=== PATIENT | male | born 1960 | race Hispanic/Latino ===

== ENCOUNTER 2017-04-29 18:10 | Inpatient (IN) | payer SELFPAY ==
[~2017-04-29] VITALS: Ht 170.2 cm; Wt 88.4 kg
[2017-04-29 18:38] LABS: BASOPHILS % (AUTO) 0.3 % (0.0-5.0); EOSINOPHILS % (AUTO) 0.9 % (0.0-8.0); HEMATOCRIT 46.8 % (42-54); LYMPHOCYTES % (AUTO) 13.1 % (21.0-51.0); MEAN CORPUSCULAR HEMOGLOBIN 31.4 pg (27.0-33.0); MEAN CORPUSCULAR VOLUME 89.6 fL (79-99); MONOCYTES % (AUTO) 10.1 % (3.0-13.0); NEUTROPHILS % (AUTO) 75.6 % (40.0-77.0); NUCLEATED RED BLOOD CELLS 0.1 % (0.0-0.19); PLATELET COUNT (AUTO) 148 K/uL (130-400); RED BLOOD CELL COUNT(AUTO) 5.23 MIL/uL (4.50-6.20); RED CELL DISTRIBUTION WIDTH 13.8 % (11.0-15.5); WHITE BLOOD COUNT (AUTO) 11.7 K/uL (4.8-10.8)
[2017-04-29 18:52] LABS: CREATININE 2.2 mg/dL (0.5-1.5); INR 0.9 (0.85-1.15); PARTIAL THROMBOPLASTIN TIME 26.7 SEC (26.3-35.5); POTASSIUM 3.4 mmol/L (3.5-5.1); PROTHROMBIN TIME 9.5 SEC (9.6-11.6)
[2017-04-29 18:57] LABS: ALBUMIN 3.6 g/dL (3.5-5.0); BILIRUBIN,TOTAL 0.7 mg/dL (0.2-1.0); TOTAL PROTEIN, SERUM 7.8 g/dL (6.0-8.3)
[2017-04-29] MEDS ORDERED: LABETALOL HCL 5 MG/ML 20ML VIAL IV ONE ×2 (19:06→21:35)
[2017-04-29] MEDS ORDERED: SODIUM CHLORIDE 0.9% 500ML 500 ML IV ONE (20:02)
[2017-04-29 22:29] LABS: APPEARANCE,URINE Clear (CLEAR); BILIRUBIN,URINE Negative (NEGATIVE); COLOR,URINE Yellow (YELLOW); GLUCOSE, URINE (UA) Negative (NEGATIVE); KETONES,URINE Negative (NEGATIVE); LEUKOCYTE ESTERASE ,URINE Negative (NEGATIVE); NITRATE,URINE Negative (NEGATIVE); OCCULT BLOOD,URINE Trace (NEGATIVE); PH,URINE 6.5 (5.0-8.0); PROTEIN,URINE POS 2+ (NEGATIVE); UROBILINOGEN,URINE 0.2 mg/dL (0.2-1.0)
[2017-04-29 22:46] LABS: AMPHET/METH SCREEN,URINE NEGATIVE (NEGATIVE); BARBITURATE SCREEN, URINE NEGATIVE (NEGATIVE); BENZODIAZEPINES SCREEN,URINE NEGATIVE (NEGATIVE); CANNABINOID SCREEN,URINE POSITIVE (NEGATIVE); COCAINE SCREEN,URINE POSITIVE (NEGATIVE); OPIATE SCREEN,URINE NEGATIVE (NEGATIVE); PHENCYCLIDINE SCREEN,URINE NEGATIVE (NEGATIVE)
[2017-04-29 22:58] LABS: BACTERIA,URINE None Seen /HPF (None Seen); RBC,URINE None Seen /HPF (0-1); SQUAMOUS EPITHELIAL CELL,UR Rare /LPF (0-2); WBC,URINE None Seen /HPF (0-1)
[2017-04-30] MEDS ORDERED: METOPROLOL TARTRATE 25 MG TAB ONE (01:14)
[2017-04-30] MEDS ORDERED: ASPIRIN 325 MG TABLET ONE (01:14)
[2017-04-30] MEDS ORDERED: ACETAMINOPHEN 325 MG TAB PO PRN (05:15)
[2017-04-30] MEDS ORDERED: ONDANSETRON HCL 4 MG/2 ML VIAL IV PRN (05:15)
[2017-04-30 06:35] LABS: CREATINE KINASE MB 0.8 ng/mL (0.5-3.6); CREATININE 2.1 mg/dL (0.5-1.5); POTASSIUM 3.4 mmol/L (3.5-5.1); TROPONIN I 0.14 ng/mL (0.00-0.06)
[2017-04-30 07:05] LABS: HEMATOCRIT 44.5 % (42-54); MEAN CORPUSCULAR HGB CONC 34.3 g/dL (32.0-36.0); MEAN CORPUSCULAR VOLUME 90.6 fL (79-99); PLATELET COUNT (AUTO) 128 K/uL (130-400); RED BLOOD CELL COUNT(AUTO) 4.91 MIL/uL (4.50-6.20); RED CELL DISTRIBUTION WIDTH 14.2 % (11.0-15.5); WHITE BLOOD COUNT (AUTO) 9.1 K/uL (4.8-10.8)
[2017-04-30 07:43] LABS: LYMPHOCYTES % (MANUAL) 12 % (22-44); MONOCYTES % (MANUAL) 13 % (2-9); REACTIVE LYMPHOCYTES 3 % (0-0); SEGMENTED NEUTROPHILS % 72 % (40-70)
[2017-04-30 07:44] LABS: MAN.DIFF COMMENT-IMPRESSION MANUAL DIFFERENTIAL; PLATELET MORPHOLOGY COMMENT SLIGHTLY DECREASED
[2017-04-30] MEDS ORDERED: HYDRALAZINE HCL 20 MG/ML VIAL ONE (08:04)
[2017-04-30] MEDS ORDERED: METOPROLOL TARTRATE 25 MG TAB PO SCH (09:00)
[2017-04-30] MEDS: ASPIRIN 325MG EC TAB 325 MG TABLET.DR PO SCH (09:00)
[2017-04-30 11:30] VITALS: BP 147/76
[2017-04-30] MEDS ORDERED: SODIUM CHLORIDE 0.9% 1000ML 1,000 ML IV ONE (11:45)
[2017-04-30] MEDS: SODIUM CHLORIDE 0.9% 1000ML 1,000 ML IV SCH ×2 (13:42→20:59)
[2017-04-30] MEDS: FAMOTIDINE 20MG TAB 20 MG TAB PO SCH ×2 (14:10→20:58)
[2017-04-30] MEDS: AMLODIPINE BESYLATE 5 MG TAB PO SCH (14:11)
[2017-04-30] MEDS: BENAZEPRIL HCL 10 MG TABLET PO SCH (14:11)
[2017-04-30] MEDS: LORAZEPAM 2 MG/ML 1 ML VIAL IVP PRN ×2 (14:57→21:47)
[2017-04-30 16:00] VITALS: BP 137/99
[2017-04-30 20:00] VITALS: BP 139/78
[2017-04-30] MEDS: ATORVASTATIN CALCIUM 20 MG TABLET PO SCH (20:58)
[2017-04-30] MEDS ORDERED: LORAZEPAM 2 MG/ML 1 ML VIAL IM PRN (21:45)
[2017-04-30] MEDS ORDERED: CHLORDIAZEPOXIDE HCL 25 MG CAP ONE (21:45)
[2017-04-30] MEDS: CHLORDIAZEPOXIDE HCL 25 MG CAP PO SCH (23:32)
[2017-05-01] VITALS (9 sets, daily range): BP systolic 154–192; BP diastolic 84–107
[2017-05-01] MEDS: CLONIDINE HCL 0.1 MG TABLET PO PRN ×2 (01:05→20:12)
[2017-05-01] MEDS: SODIUM CHLORIDE 0.9% 1000ML 1,000 ML IV SCH ×2 (01:09→10:48)
[2017-05-01] MEDS: LORAZEPAM 2 MG/ML 1 ML VIAL IVP PRN ×2 (02:15→23:51)
[2017-05-01 06:13] LABS: CREATININE 1.8 mg/dL (0.5-1.5)
[2017-05-01 06:15] LABS: POTASSIUM 2.8 mmol/L (3.5-5.1)
[2017-05-01] MEDS ORDERED: POTASSIUM CHLORIDE 20MEQ/100ML 100 ML IV ONE (07:00)
[2017-05-01] MEDS ORDERED: LIDOCAINE HCL-MPF 1% 2ML VIAL IVP PRN (07:45)
[2017-05-01] MEDS ORDERED: POTASSIUM CHLORIDE 20MEQ/100ML 100 ML IV PRN (07:45)
[2017-05-01] MEDS ORDERED: POTASSIUM CHLORIDE 10% ELIXIR 20 MEQ/15 ML UDCUP PO PRN (07:45)
[2017-05-01] MEDS: AMLODIPINE BESYLATE 5 MG TAB PO SCH (09:26)
[2017-05-01] MEDS: CHLORDIAZEPOXIDE HCL 25 MG CAP PO SCH ×3 (09:26→20:12)
[2017-05-01] MEDS: ASPIRIN 325MG EC TAB 325 MG TABLET.DR PO SCH (09:26)
[2017-05-01] MEDS: BENAZEPRIL HCL 10 MG TABLET PO SCH (09:26)
[2017-05-01] MEDS: FAMOTIDINE 20MG TAB 20 MG TAB PO SCH ×2 (09:26→20:12)
[2017-05-01] MEDS: ISOSORBIDE MONO 30MG TAB SR PO SCH (09:26)
[2017-05-01] MEDS: THIAMINE HCL 100 MG TABLET PO SCH (12:11)
[2017-05-01] MEDS: FOLIC ACID 1 MG TABLET PO SCH (12:11)
[2017-05-01] MEDS: ATORVASTATIN CALCIUM 20 MG TABLET PO SCH (20:12)
[2017-05-01] MEDS: POTASSIUM CHLORIDE 20 MEQ ERTAB PO PRN ×2 (21:02→23:19)
[2017-05-01] MEDS: HYDRALAZINE HCL 20 MG/ML VIAL IV PRN ×2 (23:23)
[2017-05-02] VITALS (7 sets, daily range): BP systolic 116–189; BP diastolic 64–118
[2017-05-02] MEDS: HYDRALAZINE HCL 20 MG/ML VIAL IV PRN (03:54)
[2017-05-02 05:50] LABS: BASOPHILS % (AUTO) 0.3 % (0.0-5.0); EOSINOPHILS % (AUTO) 0.3 % (0.0-8.0); HEMATOCRIT 45.4 % (42-54); MEAN CORPUSCULAR HEMOGLOBIN 31.3 pg (27.0-33.0); MEAN CORPUSCULAR HGB CONC 34.6 g/dL (32.0-36.0); MEAN CORPUSCULAR VOLUME 90.5 fL (79-99); MONOCYTES % (AUTO) 8.4 % (3.0-13.0); NUCLEATED RED BLOOD CELLS 0.2 % (0.0-0.19); PLATELET COUNT (AUTO) 165 K/uL (130-400); RED BLOOD CELL COUNT(AUTO) 5.02 MIL/uL (4.50-6.20); RED CELL DISTRIBUTION WIDTH 14.5 % (11.0-15.5); WHITE BLOOD COUNT (AUTO) 11.5 K/uL (4.8-10.8)
[2017-05-02 06:05] LABS: ALBUMIN 3.2 g/dL (3.5-5.0); BILIRUBIN,TOTAL 0.8 mg/dL (0.2-1.0); CREATININE 1.8 mg/dL (0.5-1.5); POTASSIUM 3.4 mmol/L (3.5-5.1); TOTAL PROTEIN, SERUM 7.2 g/dL (6.0-8.3)
[2017-05-02] MEDS ORDERED: REGADENOSON 0.4 MG/5 ML PF SYG IVP SCH (06:45)
[2017-05-02] MEDS: ASPIRIN 325MG EC TAB 325 MG TABLET.DR PO SCH (09:54)
[2017-05-02] MEDS: FOLIC ACID 1 MG TABLET PO SCH (09:55)
[2017-05-02] MEDS: CLONIDINE HCL 0.2 MG TABLET PO SCH ×2 (09:55→19:55)
[2017-05-02] MEDS: CHLORDIAZEPOXIDE HCL 25 MG CAP PO SCH ×3 (09:56→19:55)
[2017-05-02] MEDS: ISOSORBIDE MONO 30MG TAB SR PO SCH (09:56)
[2017-05-02] MEDS: POTASSIUM CHLORIDE 20 MEQ ERTAB PO PRN ×2 (09:57→12:30)
[2017-05-02] MEDS: FAMOTIDINE 20MG TAB 20 MG TAB PO SCH ×2 (09:57→19:55)
[2017-05-02] MEDS: AMLODIPINE BESYLATE 5 MG TAB PO SCH (09:57)
[2017-05-02] MEDS: THIAMINE HCL 100 MG TABLET PO SCH (09:57)
[2017-05-02] MEDS: BENAZEPRIL HCL 10 MG TABLET PO SCH ×2 (09:57→19:55)
[2017-05-02] MEDS: ATORVASTATIN CALCIUM 20 MG TABLET PO SCH (19:54)
[2017-05-03] VITALS (7 sets, daily range): BP systolic 96–161; BP diastolic 4–82
[2017-05-03] MEDS: LORAZEPAM 2 MG/ML 1 ML VIAL IVP PRN (01:50)
[2017-05-03] MEDS: CHLORDIAZEPOXIDE HCL 25 MG CAP PO SCH ×3 (07:26→20:50)
[2017-05-03] MEDS: FOLIC ACID 1 MG TABLET PO SCH (07:26)
[2017-05-03] MEDS: BENAZEPRIL HCL 10 MG TABLET PO SCH ×2 (07:26→20:51)
[2017-05-03] MEDS: THIAMINE HCL 100 MG TABLET PO SCH (07:26)
[2017-05-03] MEDS: AMLODIPINE BESYLATE 5 MG TAB PO SCH (07:27)
[2017-05-03] MEDS: ASPIRIN 325MG EC TAB 325 MG TABLET.DR PO SCH (07:27)
[2017-05-03] MEDS: FAMOTIDINE 20MG TAB 20 MG TAB PO SCH ×2 (07:27→20:51)
[2017-05-03] MEDS: CLONIDINE HCL 0.2 MG TABLET PO SCH ×2 (07:27→20:51)
[2017-05-03] MEDS: ISOSORBIDE MONO 30MG TAB SR PO SCH (07:27)
[2017-05-03] MEDS: M.V.I. IV [ADULT] 10 ML, FOLIC ACID 1 MG, THIAMINE HCL 100 MG in SODIUM CHLORIDE 0.9% 1... IV SCH (10:00)
[2017-05-03] MEDS ORDERED: [UNRECOGNIZED DRUG - CODE] PO (10:57)
[2017-05-03] MEDS ORDERED: ASPI-891 PO (10:57)
[2017-05-03] MEDS ORDERED: LIB25 PO (10:57)
[2017-05-03] MEDS ORDERED: ATOR20TA65 PO (10:57)
[2017-05-03] MEDS ORDERED: FAMO20TA8 PO (10:57)
[2017-05-03] MEDS ORDERED: Isosorbide Mono 30MG Tab Sr PO (10:57)
[2017-05-03] MEDS ORDERED: AMLO5TAB4 PO (10:57)
[2017-05-03] MEDS ORDERED: Benazepril Hcl PO (10:57)
[2017-05-03] MEDS ORDERED: FOLI1TAB15 PO (10:57)
[2017-05-03] MEDS ORDERED: THIAM100TB PO (10:57)
[2017-05-03] MEDS: ATORVASTATIN CALCIUM 20 MG TABLET PO SCH (20:49)
[2017-05-04 04:00] VITALS: BP 158/95
[2017-05-04 07:30] VITALS: BP 136/86
[2017-05-04] MEDS: M.V.I. IV [ADULT] 10 ML, FOLIC ACID 1 MG, THIAMINE HCL 100 MG in SODIUM CHLORIDE 0.9% 1... IV SCH (09:00)
[2017-05-04] MEDS: FOLIC ACID 1 MG TABLET PO SCH (10:03)
[2017-05-04] MEDS: CHLORDIAZEPOXIDE HCL 25 MG CAP PO SCH ×3 (10:05→21:28)
[2017-05-04] MEDS: ASPIRIN 325MG EC TAB 325 MG TABLET.DR PO SCH (10:05)
[2017-05-04] MEDS: BENAZEPRIL HCL 10 MG TABLET PO SCH ×2 (10:05→21:31)
[2017-05-04] MEDS: CLONIDINE HCL 0.2 MG TABLET PO SCH ×2 (10:05→21:29)
[2017-05-04] MEDS: ISOSORBIDE MONO 30MG TAB SR PO SCH (10:05)
[2017-05-04] MEDS: AMLODIPINE BESYLATE 5 MG TAB PO SCH (10:05)
[2017-05-04] MEDS: FAMOTIDINE 20MG TAB 20 MG TAB PO SCH ×2 (10:06→21:28)
[2017-05-04] MEDS: THIAMINE HCL 100 MG TABLET PO SCH (10:06)
[2017-05-04 11:00] VITALS: BP 156/97
[2017-05-04 16:00] VITALS: BP 139/78
[2017-05-04 19:00] VITALS: BP 114/67
[2017-05-04] MEDS: ATORVASTATIN CALCIUM 20 MG TABLET PO SCH (21:28)
[2017-05-05] VITALS: BP 114/70
[2017-05-05 04:00] VITALS: BP 140/85
[2017-05-05] MEDS: M.V.I. IV [ADULT] 10 ML, FOLIC ACID 1 MG, THIAMINE HCL 100 MG in SODIUM CHLORIDE 0.9% 1... IV SCH (09:00)
[2017-05-05] MEDS: CHLORDIAZEPOXIDE HCL 25 MG CAP PO SCH (09:00)
[2017-05-05] MEDS: ISOSORBIDE MONO 30MG TAB SR PO SCH (09:31)
[2017-05-05] MEDS: BENAZEPRIL HCL 10 MG TABLET PO SCH (09:31)
[2017-05-05] MEDS: FAMOTIDINE 20MG TAB 20 MG TAB PO SCH (09:31)
[2017-05-05] MEDS: AMLODIPINE BESYLATE 5 MG TAB PO SCH (09:31)
[2017-05-05] MEDS: THIAMINE HCL 100 MG TABLET PO SCH (09:31)
[2017-05-05 09:32] VITALS: BP 140/88
[2017-05-05] MEDS: FOLIC ACID 1 MG TABLET PO SCH (09:32)
[2017-05-05] MEDS: CLONIDINE HCL 0.2 MG TABLET PO SCH (09:32)
[2017-05-05] MEDS: ASPIRIN 325MG EC TAB 325 MG TABLET.DR PO SCH (09:32)
== END 2017-05-05 11:42 | disposition home or self-care (01) | DRG 305 ==
LOC: EDH 18:10 → EDBD 18:10 → OBSVTOIN 18:11 → EDHIP 18:11 → 4BH 04-30 11:14
PROVIDERS: ADMIT Family Medicine; ATTEND Family Medicine
DX: I16.1 Hypertensive emergency (principal); F10.231 Alcohol dependence with withdrawal delirium; E46 Unspecified protein-calorie malnutrition; I13.10 Hypertensive heart and chronic kidney disease without heart failure, with stage 1 through stage 4 chronic kidney disease, or unspecified chronic kidney disease; N18.3 Chronic kidney disease, stage 3 (moderate); K70.10 Alcoholic hepatitis without ascites; I69.354 Hemiplegia and hemiparesis following cerebral infarction affecting left non-dominant side; E87.6 Hypokalemia; F12.10 Cannabis abuse, uncomplicated; F14.10 Cocaine abuse, uncomplicated; I25.10 Atherosclerotic heart disease of native coronary artery without angina pectoris; Z72.0 Tobacco use; Z91.19 Patient's noncompliance with other medical treatment and regimen; E87.5 Hyperkalemia; F19.10 Other psychoactive substance abuse, uncomplicated; Z68.30 Body mass index [BMI] 30.0-30.9, adult
CPT/HCPCS: 36415; 70450; 71045; 73562; 80048; 80053; 80061; 80305; 81001; 82550; 82553; 82948; 83735; 83874; 84132; 84484; 85025; 85610; 85730; 93005; 97039; 99291; J0360; J2060; J2785; J3411; J3480; J3490; J7030; J7040